=== PATIENT | female | born 1990 | race Two or more races ===

== ENCOUNTER 2016-10-28 09:09 | Emergency (ER) | payer MEDICAID ==
[~2016-10-28] VITALS: Ht 157.5 cm; Wt 59.0 kg
[2016-10-28 10:23] LABS: Basophils # (auto) 0.1 uL; Basophils % (auto) 0.5 % (0.0-2.0); Eosinophils # (auto) 0 uL; Eosinophils % (auto) 0.2 % (0.0-7.0); Hematocrit 39.8 % (36.0-46.0); Hemoglobin 13.5 g/dL (12.2-16.2); Lymphocytes # (auto) 1.5 uL; Lymphocytes % (auto) 13.5 % (10.0-50.0); Mean Corpuscular Hemoglobin 30.1 pg (28.0-32.0); Mean Corpuscular Hgb Conc. 33.9 g/dL (32.0-36.0); Mean Corpuscular Volume 88.7 fL (80.0-100.0); Mean Platelet Volume 8.5 fL (7.4-10.4); Monocytes # (auto) 0.5 uL; Monocytes % (auto) 4.7 % (0.0-12.0); Neutrophils % (auto) 81.1 % (37.0-80.0); Platelet Count (auto) 254 10^3/uL (140-450); Red Cell Distribution Width 14.1 % (11.6-16.0); White Blood Cell 11.1 10^3/uL (4.4-10.8)
[2016-10-28 10:42] LABS: Albumin 3.7 g/dL (3.4-5.0); BUN/Creatinine Ratio 7.7; Bilirubin, Total 0.3 mg/dL (0.2-1.0); Potassium 3.3 mmol/L (3.5-5.1); Total Protein 8.2 g/dL (6.4-8.2)
[2016-10-28 11:22] LABS: INR 0.94 (0.9-1.15); Partial Thromboplastin Time 28.7 sec (22.64-33.71); Prothrombin Time 10.2 sec (9.37-12.3)
[2016-10-28 13:23] LABS: Urine Bilirubin Negative (Negative); Urine Color Yellow (Yellow); Urine Glucose Normal (Normal); Urine Nitrite Negative (Negative); Urine RBC 7 /hpf (0 - 4); Urine Urobilinogen Normal (Negative); Urine pH 6.5 (5.0-8.0)
[2016-10-28 13:26] LABS: Urine Blood 2+ /uL (Negative); Urine Ketone 1+ (Negative)
[2016-10-28] MEDS ORDERED: POTASSIUM CHL 20 Meq TABLET PO ONE ×2 (14:45→15:00)
[2016-10-28] MEDS ORDERED: METHYLERGONOVINE MALEATE 0.2 MG/ML AMP IM ONE (14:45)
[2016-10-28 15:02] VITALS: BP 116/71
== END 2016-10-28 15:02 | disposition home or self-care (01) ==
LOC: ER 09:09
DX: O03.9 Complete or unspecified spontaneous abortion without complication (principal); O23.41 Unspecified infection of urinary tract in pregnancy, first trimester; O99.281 Endocrine, nutritional and metabolic diseases complicating pregnancy, first trimester; E87.6 Hypokalemia; Z3A.09 9 weeks gestation of pregnancy
CPT/HCPCS: 36415; 76801; 80053; 81001; 84702; 85025; 85610; 85730; 86850; 86900; 86901; 96372; 99285; J2210

== ENCOUNTER 2017-10-30 09:43 | Emergency (ER) | payer MEDICAID ==
[~2017-10-30] VITALS: Ht 157.5 cm; Wt 63.0 kg
[2017-10-30 10:31] LABS: Basophils # (auto) 0 uL; Basophils % (auto) 0.2 % (0.0-2.0); Eosinophils # (auto) 0 uL; Eosinophils % (auto) 0.2 % (0.0-7.0); Hematocrit 41.1 % (36.0-46.0); Hemoglobin 13.5 g/dL (12.2-16.2); Lymphocytes # (auto) 1.9 uL; Mean Corpuscular Hemoglobin 28.1 pg (28.0-32.0); Mean Corpuscular Hgb Conc. 32.9 g/dL (32.0-36.0); Mean Corpuscular Volume 85.5 fL (80.0-100.0); Monocytes # (auto) 0.4 uL; Monocytes % (auto) 4.5 % (0.0-12.0); Neutrophils # (auto) 7.4 uL; Neutrophils % (auto) 76.1 % (37.0-80.0); Nucleated Red Blood Cells % 0.1 %; Platelet Count (auto) 277 10^3/uL (140-450); Red Blood Cells 4.81 10^6/uL (4.0-5.20); Red Cell Distribution Width 15.4 % (11.8-14.3); White Blood Cell 9.7 10^3/uL (4.4-10.8)
[2017-10-30 10:50] LABS: Albumin 4.4 g/dL (3.4-5.0); Bilirubin, Total 0.5 mg/dL (0.2-1.0); Potassium 3.2 mmol/L (3.5-5.1); Total Protein 8.8 g/dL (6.4-8.2)
[2017-10-30 11:20] VITALS: BP 141/83
== END 2017-10-30 11:23 | disposition home or self-care (01) ==
LOC: ER 09:49
DX: N93.9 Abnormal uterine and vaginal bleeding, unspecified (principal); R10.30 Lower abdominal pain, unspecified
CPT/HCPCS: 36415; 80053; 84702; 85025

== ENCOUNTER 2019-04-06 19:58 | Emergency (ER) | payer MEDICAID ==
[~2019-04-06] VITALS: Ht 157.5 cm; Wt 63.5 kg
[2019-04-06 23:10] VITALS: BP 109/75
== END 2019-04-06 23:16 | disposition home or self-care (01) ==
LOC: ER 20:01
DX: S93.401A Sprain of unspecified ligament of right ankle, initial encounter (principal); X50.1XXA Overexertion from prolonged static or awkward postures, initial encounter; Y93.89 Activity, other specified; Y92.89 Other specified places as the place of occurrence of the external cause; Y99.8 Other external cause status
CPT/HCPCS: 29515; 73610

== ENCOUNTER 2019-06-06 09:03 | Emergency (ER) | payer MEDICAID, OTHER ==
[~2019-06-06] VITALS: Ht 157.5 cm; Wt 68.0 kg
[2019-06-06 09:06] VITALS: BP 115/65
[2019-06-06] MEDS ORDERED: ACETAMINOPHEN 325 MG TAB PO ONE (09:15)
[2019-06-06] MEDS ORDERED: IBUPROFEN 600 MG TAB PO ONE (10:30)
== END 2019-06-06 10:56 | disposition home or self-care (01) ==
LOC: ER 09:03 → EDUNIT# 09:03 → ER 10:55
DX: J02.9 Acute pharyngitis, unspecified (principal); J06.9 Acute upper respiratory infection, unspecified; Z88.0 Allergy status to penicillin
CPT/HCPCS: 71046

== ENCOUNTER 2023-12-21 11:09 | Emergency (ER) | payer MEDICAID ==
[~2023-12-21] VITALS: Ht 157.5 cm; Wt 68.6 kg
[2023-12-21 12:40] VITALS: BP 130/74; PULSE 80; RESP 16; TEMP 98.9; O2SAT 98
[2023-12-21] MEDS ORDERED: IBUP-1454 PO (12:55)
== END 2023-12-21 13:06 | disposition home or self-care (01) ==
LOC: ER 11:15
DX: S39.012A Strain of muscle, fascia and tendon of lower back, initial encounter (principal); Z88.0 Allergy status to penicillin; V43.52XA Car driver injured in collision with other type car in traffic accident, initial encounter; Y93.I9 Activity, other involving external motion; Y92.89 Other specified places as the place of occurrence of the external cause; Y99.8 Other external cause status
CPT/HCPCS: 72100